=== PATIENT | female | born 1960 | race Caucasian/White ===

== ENCOUNTER 2022-10-07 09:45 | Outpatient (CLI) | payer BC | END 2022-10-07 09:46 | disposition home or self-care (01) | LOC: BICMAMMO 09:45 | PROVIDERS: ATTEND Family Medicine | DX: Z12.31 Encounter for screening mammogram for malignant neoplasm of breast (principal); R92.8 Other abnormal and inconclusive findings on diagnostic imaging of breast | CPT/HCPCS: 77063; 77067 ==

== ENCOUNTER 2022-10-14 09:11 | Outpatient (CLI) | payer BC | END 2022-10-14 09:12 | disposition home or self-care (01) | LOC: BICMAMMO 09:11 | PROVIDERS: ATTEND Family Medicine | DX: N64.89 Other specified disorders of breast (principal) | CPT/HCPCS: 77066; G0279 ==

== ENCOUNTER → 2022-10-21 | Day surgery (SDC) | payer BC | END | disposition home or self-care (01) | LOC: BICULT 12:15 | PROVIDERS: ATTEND Family Medicine | PROC: 0H9U3ZX Drainage of Left Breast, Percutaneous Approach, Diagnostic (ICD-10-PCS; principal; 2022-10-21) | DX: C50.412 Malignant neoplasm of upper-outer quadrant of left female breast (principal); Z17.0 Estrogen receptor positive status [ER+] | CPT/HCPCS: 19083; 88305; 88341; 88342; 88361 ==

== ENCOUNTER 2023-01-02 07:52 | Day surgery (SDC) | payer BC ==
[2023-01-01 09:41] VITALS: BMI 53.2
[2023-01-02] MEDS ORDERED: Acetaminophen 500 MG TAB ONE (08:24)
[2023-01-02] MEDS ORDERED: Ketorolac Tromethamine 30 MG/ML VIAL ONE (08:24)
[2023-01-02] MEDS ORDERED: EPINEPHrine 1 MG/ML AMP ONE (10:18)
[2023-01-02] MEDS ORDERED: Bupivacaine 0.25% HCL 30 ML VIAL ONE (10:18)
[2023-01-02] MEDS ORDERED: CEFAZOLIN 2 GM VIAL ONE (10:29)
[2023-01-02] MEDS ORDERED: Sodium Chloride 0.9% 100 ML ONE (10:29)
[2023-01-02] MEDS ORDERED: Promethazine HCl 25 MG/ML VIAL ONE (10:31)
[2023-01-02] MEDS ORDERED: fentaNYL PF 100 MCG/2 ML SYRINGE ONE (10:31)
[2023-01-02] MEDS ORDERED: Ondansetron PF 4 MG/2 ML Vial ONE (10:36)
[2023-01-02] MEDS ORDERED: PROPOFOL 200 MG/20 ML VIAL ONE (10:36)
[2023-01-02] MEDS ORDERED: Lidocaine 1% PF 5 ML VIAL ONE (10:36)
[2023-01-02] MEDS ORDERED: Labetalol HCl 100 MG/20 ML VIAL ONE (12:31)
[2023-01-02] MEDS ORDERED: fentaNYL 50 mcg/mL 1 mL Vial ONE (12:31)
[2023-01-02] MEDS ORDERED: hydrALAZINE 20 MG/ML VIAL ONE (13:04)
== END 2023-01-02 14:00 | disposition home or self-care (01) ==
LOC: SDC 07:52
PROVIDERS: ATTEND Specialist
PROC: 0HBU0ZZ Excision of Left Breast, Open Approach (ICD-10-PCS; principal; 2023-01-02)
DX: C50.912 Malignant neoplasm of unspecified site of left female breast (principal); E66.01 Morbid (severe) obesity due to excess calories; Z68.43 Body mass index [BMI] 50.0-59.9, adult; I10 Essential (primary) hypertension; E78.00 Pure hypercholesterolemia, unspecified; M19.90 Unspecified osteoarthritis, unspecified site; Z79.899 Other long term (current) drug therapy; Z79.891 Long term (current) use of opiate analgesic; Z90.49 Acquired absence of other specified parts of digestive tract
CPT/HCPCS: 88307; 88342; C1713; C1889; J0171; J0360; J1885; J2405; J2550; J2704; J3010; J3490; S0020

== ENCOUNTER 2023-04-21 10:03 | Outpatient (CLI) | payer BC | END 2023-04-21 10:04 | disposition home or self-care (01) | LOC: BICMAMMO 10:03 | PROVIDERS: ATTEND Internal Medicine Hematology & Oncology | DX: R92.8 Other abnormal and inconclusive findings on diagnostic imaging of breast (principal); N64.89 Other specified disorders of breast; Z85.3 Personal history of malignant neoplasm of breast | CPT/HCPCS: G0279 ==

== ENCOUNTER 2024-05-31 10:15 | Outpatient (CLI) | payer MEDICARE | END 2024-05-31 10:16 | disposition home or self-care (01) | LOC: BICMAMMO 10:15 | PROVIDERS: ATTEND Internal Medicine Hematology & Oncology | DX: M85.832 Other specified disorders of bone density and structure, left forearm (principal); M85.831 Other specified disorders of bone density and structure, right forearm | CPT/HCPCS: 77080 ==